=== PATIENT | male | born 1980 | race Caucasian/White ===

== ENCOUNTER 2022-02-04 19:13 | Outpatient (CLI) | payer OTHER, SELFPAY | END 2022-02-04 19:14 | disposition home or self-care (01) | LOC: AMB 02-16 10:43 | PROVIDERS: Visit Provider Student in an Organized Health Care Education/Training Program | DX: R06.02 Shortness of breath (principal); R05.9 Cough, unspecified; T59.811A Toxic effect of smoke, accidental (unintentional), initial encounter; Y92.9 Unspecified place or not applicable | CPT/HCPCS: A0429; A0998 ==